=== PATIENT | male | born 2000 | race Caucasian/White ===

== ENCOUNTER 2018-03-25 11:02 | Emergency (ER) | payer OTHER ==
[~2018-03-25] VITALS: Ht 177.8 cm; Wt 108.4 kg
[2018-03-25 11:43] VITALS: BP 120/75
== END 2018-03-25 11:49 | disposition home or self-care (01) ==
LOC: FSED 11:02
DX: L02.01 Cutaneous abscess of face (principal)
CPT/HCPCS: 99283

== ENCOUNTER 2018-05-17 00:59 | Emergency (ER) | payer OTHER ==
[~2018-05-17] VITALS: Ht 177.8 cm; Wt 108.4 kg
== END 2018-05-17 01:44 | disposition home or self-care (01) ==
LOC: FSED 00:59
DX: S60.453A Superficial foreign body of left middle finger, initial encounter (principal); W25.XXXA Contact with sharp glass, initial encounter; W45.8XXA Other foreign body or object entering through skin, initial encounter
CPT/HCPCS: 99283